=== PATIENT | male | born 1995 | race Hispanic/Latino ===

== ENCOUNTER 2016-06-18 10:46 | Emergency (ER) | payer OTHER ==
[~2016-06-18] VITALS: Ht 189.2 cm; Wt 111.1 kg
--- NOTE | 2016-06-18 11:55 | ED UPPER/LOWER EXTREMITY COMPL ---
History of Present Illness General Chief Complaint: Laceration Procedure Stated Complaint: LAC TO LT LEG Source: patient, old records Exam Limitations: no limitations Vital Signs & Intake/Output Vital Signs & Intake/Output Vital Signs Date Time Temp Pulse Resp B/P Pulse O2 O2 Flow FiO2 Ox Delivery Rate 06/18 1323 98.5 66 18 139/73 97 Room Air 06/18 1105 97.1 72 18 117/82 98 Room Air Allergies Coded Allergies: No Known Allergies (06/18/16) Reconcile Medications Cephalexin (Keflex) 500 MG CAPSULE 1 CAP PO TID PPX Triage Note: PT STATES THAT HE WORKS FOR [employer] AND HE WAS STANDING TO CLOSE TO A MACHINE AND THE GLASS CUT HIM ON HIS L UPPER LEG Triage Nurses Notes Reviewed? yes Onset: Abrupt Duration: hour(s): (1), constant Timing: recent history Severity: mild Severity Numbers: 4 Pain/Injury Location: Left: Thigh. Method of Injury: laceration No Modifying Factors: none Associated Symptoms: denies HPI: 20-year-old male presents to emergency room status post a single laceration to his left 5 when he accidentally was cut on a glass saw while at work 1 hour prior to arrival. He now presents complaining of mild aching 4 out of 10 pain. He states he is up-to-date on his tetanus there is no other injury he denies any difficulty with weightbearing or movement of the leg. Denies any numbness or tingling. There are no modifying factors or associated symptoms otherwise he is not taken anything for his pain is declining anything when offered. The patient is otherwise without any complaints pain is aching and nonradiating constant sudden onset (JUAN RAMON CARPENTER) Past History Travel History Traveled to [place] past 21 day No Medical History Any Pertinent Medical History? none Neurological: NONE EENT: NONE Cardiovascular: NONE Respiratory: NONE Gastrointestinal: NONE Hepatic: NONE Renal: NONE Musculoskeletal: NONE Psychiatric: NONE Endocrine: NONE Blood Disorders: NONE Cancer(s): NONE [employer] DES[employer]/Reproductive: NONE Surgical History Surgical History: none Psychosocial History What is your primary language Latvian Tobacco Use: Current Daily Use Daily Tobacco Use Amount/Type: => 5 Cigarettes daily ETOH Use: denies use Illicit Drug Use: denies illicit drug use Family History Hx Contributory? No (JUAN RAMON CARPENTER) Review of Systems Review of Systems Constitutional: Reports: see HPI. All Other Systems: Reviewed and Negative Comments Review of systems: See HPI, All other systems negative. Constitutional, no chills no fever, no malaise HEENT: No visual changes no sore throat no congestion Cardiovascular: No chest pain , no palpitation , no orthopnea Skin, no jaundice no rashes, no change in skin Respiratory: No dyspnea no cough no sputum GI: No nausea no vomiting, no diarrhea, : No dysuria Muscle skeletal: No joint pain, no joint swelling, no back pain, no neck pain, Neurologic: No numbness no headache Psych: No stress Heme/endocrine: No bruising no bleeding Immunology: No lymphadenopathy (JUAN RAMON CARPENTER) Physical Exam Physical Exam General Appearance: well developed/nourished, alert, awake Comments: Well-developed well-nourished patient in no apparent distress. HEENT: Atraumatic, extraocular motion intact Neck: Supple, FROM Back: FROM Cardiovascular: Regular rate and rhythms no murmurs rubs or gallops, Respiratory: No respiratory distress. Patient speaking in full complete sentences. Breath sounds clear to auscultation bilaterally: NO W/R/R Upper Extremities: full range of motion Hip/Pelvis: Atraumatic/Stable. FROM. Knee: Atraumatic/stable. FROM. No joint swelling, no effusion. No laxity. No pain with ROM Leg: There is a 6 cm superficial linear laceration noted over the left lateral upper quadricep, there is no deep tendon injury there is no muscle involvement, there is no surrounding ecchymosis there is no other abrasions or lacerations noted to the skin. Nontender. No edema, 5 out of 5 strength in the lower extremity, normal dorsiflexion of great toe bilaterally, gross sensation is intact Ankle/Foot: Atraumatic/stable. Skin intact. FROM. No swelling, no effusion. No laxity on exam Pulses: Normal/equal DP/PT pulses bilaterally. Brisk cap refill Neuro: Alert and oriented x3 Skin: Warm & dry;No appreciable rash on exposed skin Psych: Mood affect normal, normal memory normal judgment. (JUAN RAMON CARPENTER) Progress Differential Diagnosis: contusion, sprain, tendon injury, cellulitis embedded foreign body Plan of Care: Current Medications Sig/Gio Start time Last Medication Dose Stop Time Status Admin Lidocaine 20 ML ONCE ONE 06/18 121 UNVr (Lidocaine 1%) 06/18 1216 I discussed with the patient possibly foreign body still exists not seen on examination the wound was thoroughly you're given normal saline Betadine peroxide, 17 sutures were placed by me patient tolerated well, prescription for Keflex was provided advised to follow up with primary care return in 7-10 days for suture removal return anytime sooner with any concerns or signs of infection they for comfortable flank or discharge (JUAN RAMON CARPENTER) Departure Departure Time of Disposition: 1307 Disposition: HOME OR SELF CARE Condition: Stable Clinical Impression Primary Impression: Leg laceration Referrals: UNKNOWN (PCP/Family) Additional Instructions: Keflex as directed for wound prophylaxis this was sent to your pharmacy Keep area clean and covered as discussed, bacitracin daily. Return to ER in 7-10 days for suture removal. The possibility of a retained foreign body not seen during examination today or deep tendon injury exists. Return to ER anytime sooner with any concerns or signs of infection: Redness, warmth, swelling discharge fever or chills. Departure Forms: Customer Survey General Discharge Information Prescriptions: Current Visit Scripts Cephalexin (Keflex) 1 CAP PO TID #15 CAP (JUAN RAMON CARPENTER) PA/BANKING CONSULTANT Co-Sign Statement Statement: ED Attending supervision documentation- [] I saw and evaluated the patient. I have also reviewed all the pertinent lab results and diagnostic results. I agree with the findings and the plan of care as documented in the PA's/BANKING CONSULTANT's documentation. x I have reviewed the ED Record and agree with the PA's/BANKING CONSULTANT's documentation. [] Additions or exceptions (if any) to the PAs/BANKING CONSULTANT's note and plan are summarized below: [] (BRE PEREZ,SIA) Procedures Laceration/Wound Repair Laceration/Wound Repair: Wound Location: lower extremity Wound's Depth, Shape: linear, superficial Wound Length (cm): 6 Wound Explored: clean, irrigated extensively Irrigated w/ Saline (ccs): 500 Betadine Prep? Yes Anesthesia: 1% lidocaine Volume Anesthetic (ccs): 10 Wound Debrided: minimal Wound Repaired With: sutures Suture Size/Type: 3:0 Number of Sutures: 17 Layer Closure? No Sterile Dressing Applied: Yes Tetanus Status: up to date (JUAN RAMON CARPENTER)
[2016-06-18] MEDS ORDERED: KEFLEX500 M1 PO (13:08)
[2016-06-18 13:23] VITALS: BP 139/73
== END 2016-06-18 13:37 ==
LOC: ERH 10:46
DX: S81.812A Laceration without foreign body, left lower leg, initial encounter (principal); W25.XXXA Contact with sharp glass, initial encounter

== ENCOUNTER 2016-10-14 09:53 | Emergency (ER) | payer OTHER ==
[~2016-10-14] VITALS: Ht 188 cm; Wt 108.0 kg
[~2016-10-14 09:53] MED LIST: KEFLEX500 M1 PO
[2016-10-14 09:58] VITALS: BP 115/74
== END 2016-10-14 10:13 | disposition admitted as inpatient to this hospital (09) ==
LOC: ERH 09:53
DX: S61.214A Laceration without foreign body of right ring finger without damage to nail, initial encounter (principal)